=== PATIENT | female | born 1970 | race Caucasian/White ===

== ENCOUNTER → 2021-08-22 | Day surgery (SDC) | payer BC ==
[~2021-08-22] MED LIST: ALIGN4 MG PO; ARMOUR THYROID60 MG PO; BIOTIN2500 MCG PO; HYDROCHLOROTH12.5 MG PO; LEVOTHYROXINE75 MCG PO; POVIDONE IODINE 0.05% 0.05 % ML PO ONE; PROPOFOL IV EMULSION 10 MG/ML 20 ML VIAL ONE; VITAMIN B122500 MCG PO; VITAMIN D3250 MCG PO
[2021-08-22 07:45] VITALS: BP 117/79
== END | disposition home or self-care (01) ==
LOC: ENDO 05:26
PROVIDERS: ATTEND Surgery
DX: K20.90 Esophagitis, unspecified without bleeding (principal); K31.1 Adult hypertrophic pyloric stenosis; Z98.84 Bariatric surgery status; K30 Functional dyspepsia; K21.9 Gastro-esophageal reflux disease without esophagitis; K44.9 Diaphragmatic hernia without obstruction or gangrene; R11.2 Nausea with vomiting, unspecified; I10 Essential (primary) hypertension; E66.01 Morbid (severe) obesity due to excess calories; Z01.810 Encounter for preprocedural cardiovascular examination; Z01.812 Encounter for preprocedural laboratory examination; Z20.822 Contact with and (suspected) exposure to COVID-19; Z79.899 Other long term (current) drug therapy; Z68.41 Body mass index [BMI] 40.0-44.9, adult
CPT/HCPCS: 43239; 81025; 88304; 93005; U0002